=== PATIENT | female | born 1995 | race Caucasian/White ===

== ENCOUNTER 2019-01-09 14:00 | Emergency (ER) | payer MEDICAID ==
[~2019-01-09] VITALS: Ht 160 cm; Wt 66.7 kg
[~2019-01-09 14:00] MED LIST: PRENAT PO
[2019-01-09 14:15] VITALS: BP 116/69; PULSE 79; RESP 18; Ht 160 cm; Wt 66.7 kg
[2019-01-09] MEDS ORDERED: ACET-141 PO (17:11)
--- NOTE | 2019-01-09 17:15 | ERD ---
ER Documentation Chief Complaint Chief Complaint 6 weeks pre HPI 23-year-old female currently 6 weeks presents for headache x1 day. She states that she has 7 out of 10 headache that is noted on the left side of her head. She denies any pain radiation. The pain is noted to be a pulsatile sensation. The pain is intermittent. She has not taken any medication because she is concerned that she is . She has had prior similar headaches in the past. She denies any nausea or vomiting. Denies fevers or chills. No other modifying factors noted, no treatment tried at home. ROS All systems reviewed and are negative except as per history of present illness. Medications Home Meds Active Scripts Acetaminophen* (Acetaminophen*) 500 MG Extra Strength Tablet, 500 MG PO Q4H PRN for PAIN AND OR ELEVATED TEMP, #30 TAB Prov:VINICIO HALL DO 01/09/19 Reported Medications Multivit/Min/Fol Ac/Iron/Pren* ( S*) 1 Tab Tab, 1 TAB PO DAILY, TAB 01/30/15 Allergies Allergies: Coded Allergies: No Known Allergies (Verified Allergy, Unknown, 01/09/19) PMhx/Soc Medical and Surgical Hx: pt denies Medical Hx, pt denies Surgical Hx History of Surgery: Yes ( ) Hx Neurological Disorder: No Hx Respiratory Disorders: No Hx Cardiac Disorders: No Hx Miscellaneous Medical Probl: No Hx Alcohol Use: No Hx Substance Use: No Smoking Status: Never smoker FmHx Family History: No coronary disease Physical Exam Vitals Vital Signs Date Temp Pulse Resp B/P (MAP) Pulse Ox O2 O2 Flow FiO2 Time Delivery Rate 01/09/19 98.2 79 18 116/69 98 14:15 (85) Physical Exam Const: No acute distress Head: Atraumatic, no temporal area tenderness to palpation Eyes: Normal Conjunctiva, pupils equal, round, reactive to light bilaterally ENT: Normal External Ears, bilateral tympanic membrane intact without eryt christine or bulging noted, Nose and Mouth examination normal. No tonsillar swelling or exudate noted Neck: Full range of motion. No meningismus, no bruits noted Resp: Clear to auscultation bilaterally Cardio: Regular rate and rhythm, no murmurs, bilateral radial and dorsalis pedis pulses intact Skin: No petechiae or rashes Ext: No cyanosis, or edema, 5 out of 5 muscular bilateral upper and lower extremities Neur: Awake and alert, bilateral upper and lower extremity sensation intact Psych: Normal Mood and Affect Procedures/MDM Medical Decision Making: Differential diagnosis includes but not limited to primary headache, subarachnoid hemorrhage, meningitis, temporal arteritis, glaucoma, hypertension, cerebral ischemia, carotid or vertebral arterial dissection, brain tumor. Patient appeared well on physical examination, nontoxic appearing. No history of fever. There is low suspicion for meningitis. Given no temporal area tenderness to palpation, low suspicion for temporal art eritis. Patient has no vision changes and pupils are reactive bilaterally, low suspicion for glaucoma. There is also no focal neurologic deficits to suggest a brain tumor. Patient has normal sensation and muscle strength, low suspicion for cerebral ischemia. Given headache is similar to prior headaches, patient possibly has a primary headache. Patient given prescription for Tylenol. Patient advised to take as little of the medication as possible given that she is currently . Patient advised to follow up with PCP in 1-2 days. Patient advised to return to ED for new or worsening symptoms. Patient stable on discharge from the ED. Disclaimer: Inadvertent spelling and grammatical errors are likely due to EHR/dictation software use and do not reflect on the overall quality of patient care. Also, please note that the electronic time recorded on this note does not necessarily reflect the actual time of the patient encounter. Departure Diagnosis: Primary Impression: Headache Headache type: unspecified Headache chronicity pattern: unspecified pattern Intractability: not intractable Qualified Codes: R51 - Headache Condition: Fair Patient Instructions: Self-Care for Headaches Referrals: [facility] YOU HAVE RECEIVED A MEDICAL SCREENING EXAM AND THE RESULTS INDICATE THAT YOU DO NOT HAVE A CONDITION THAT REQUIRES URGENT TREATMENT IN THE EMERGENCY DEPARTMENT. FURTHER EVALUATION AND TREATMENT OF YOUR CONDITION CAN WAIT UNTIL YOU ARE SEEN IN YOUR DOCTORS OFFICE WITHIN THE NEXT 1-2 DAYS. IT IS YOUR RESPONSIBILITY TO MAKE AN APPOINTMENT FOR FOLOW-UP CARE. IF YOU HAVE A PRIMARY DOCTOR --you should call your primary doctor and schedule an appointment IF YOU DO NOT HAVE A PRIMARY DOCTOR YOU CAN CALL OUR PHYSICIAN REFERRAL HOTLINE AT IF YOU CAN NOT AFFORD TO SEE A PHYSICIAN YOU CAN CHOSE FROM THE FOLLOWING [facility] [address] [facility] [address] [facility] [address] [facility] [address] [facility]. [facility] [address] [facility]. [facility]. [address] Additional Instructions: Llame al doctor MAANA y amberly fallon NIKO PARA DENTRO DE 1-2 GÓMEZ.Dgale a la secretaria que nosotros le instruimos hacer esta niko.Avise o llame si calderon condicin se empeora antes de la niko. Regresa aqui si peor o no mejor. VINICIO HALL DO January 09, 2019 17:15
== END 2019-01-09 17:30 | disposition home or self-care (01) ==
LOC: FTE 14:00
DX: O99.89 Other specified diseases and conditions complicating pregnancy, childbirth and the puerperium (principal); R51 Headache; Z3A.01 Less than 8 weeks gestation of pregnancy
CPT/HCPCS: 99282

== ENCOUNTER 2019-01-19 17:55 | Emergency (ER) | payer MEDICAID ==
[~2019-01-19] VITALS: Wt 75.0 kg
[~2019-01-19 17:55] MED LIST changes: +ACET-141 PO
--- NOTE | 2019-01-19 18:25 | EN ---
Date/Time of Note Date/Time of Note DATE: 01/19/19 TIME: 18:22 ER Progress Note Rapid medical evaluation was started on this patient. Patient is a 23-year-old female G2, P1, LMP of 12/25/2018,presenting to the emergency department with complaints of diffuse abdominal pain and pelvic pain which began today. She also reports right upper quadrant pain. She denies any vaginal bleeding at this time. On examination, the patient did have some tenderness to palpation of the right upper quadrant in the pelvic region bilaterally. She will be sent back for further work-up. ARELI TILLEY PA-C January 19, 2019 18:25
[2019-01-19] MEDS ORDERED: ERYT1OIN6 BOTH EYES (19:16)
[2019-01-19] MEDS ORDERED: HYDR-4011 PO (19:16)
[2019-01-19] MEDS ORDERED: IBUP-1542 PO (19:19)
[2019-01-19] MEDS ORDERED: ERYTHROMYCIN 1 GM OPH OINT BOTH EYES ONE (19:30)
--- NOTE | 2019-01-19 20:36 | ERD ---
ER Documentation Chief Complaint Chief Complaint 6 WEEKS WITH EPIGASTRIC PAIN HPI Patient is a 23-year-old female G2, P1, LMP of 12/25/2018,presenting to the emergency department with complaints of epigastric pain which began today. Not taking any treatments. She denies any vaginal bleeding at this time. Denies any dysuria, hematuria, fever, chills, vomiting. She has an OB. ROS All systems reviewed and are negative except as per history of present illness. Medications Home Meds Active Scripts Cephalexin* (Keflex*) 500 Mg Capsule, 500 MG PO BID for 14 Days, CAP Prov:ARELI BERMUDEZ 01/19/19 Acetaminophen* (Acetaminophen*) 500 MG Extra Strength Tablet, 500 MG PO Q4H PRN for PAIN AND OR ELEVATED TEMP, #30 TAB Prov:VINICIO HALL DO 01/09/19 Reported Medications Multivit/Min/Fol Ac/Iron/Pren* ( S*) 1 Tab Tab, 1 TAB PO DAILY, TAB 01/30/15 Allergies Allergies: Coded Allergies: No Known Allergies (Verified Allergy, Unknown, 01/09/19) PMhx/Soc History of Surgery: Yes ( ) Hx Neurological Disorder: No Hx Respiratory Disorders: No Hx Cardiac Disorders: No Hx Psychiatric Problems: No Hx Miscellaneous Medical Probl: No Hx Alcohol Use: No Hx Substance Use: No Hx Tobacco Use: No Smoking Status: Never smoker FmHx Family History: No diabetes, No coronary disease, No other Physical Exam Vitals Vital Signs Date Temp Pulse Resp B/P (MAP) Pulse Ox O2 O2 Flow FiO2 Time Delivery Rate 01/19/19 99.0 80 18 119/76 100 Room Air 22:16 (90) 01/19/19 98.1 75 18 133/61 99 17:57 (85) Physical Exam Const: No acute distress Head: Atraumatic Eyes: Normal Conjunctiva ENT: Normal External Ears, Nose and Mouth. Neck: Full range of motion. No meningismus. Resp: Clear to auscultation bilaterally Cardio: Regular rate and rhythm, no murmurs Abd: Tender to palpation epigastric area. Negative McBurney's. Negative Boucher's. Skin: No petechiae or rashes Back: Left sided flank tenderness. Ext: No cyanosis, or edema Neur: Awake and alert Psych: Normal Mood and Affect Result Diagram: 01/19/191913 Results 24 hrs Laboratory Tests Test 01/19/19 19:11 01/19/19 19:14 01/19/19 19:15 Lipase 57 U/L White Blood Count 18.6 10^3/ul Red Blood Count 4.07 10^6/ul Hemoglobin 12.5 g/dl Hematocrit 37.3 % Mean Corpuscular Volume 91.6 fl Mean Corpuscular Hemoglobin 30.7 pg Mean Corpuscular 33.5 g/dl Hemoglobin Concent Red Cell Distribution Width 12.6 % Platelet Count 265 10^3/UL Mean Platelet Volume 10.6 fl Immature Granulocytes % 0.300 % Neutrophils % 83.5 % Lymphocytes % 11.1 % Monocytes % 4.3 % Eosinophils % 0.5 % Basophils % 0.3 % Nucleated Red Blood Cells % 0.0 /100WBC Immature Granulocytes # 0.050 10^3/ul Neutrophils # 15.5 10^3/ul Lymphocytes # 2.1 10^3/ul Monocytes # 0.8 10^3/ul Eosinophils # 0.1 10^3/ul Basophils # 0.1 10^3/ul Nucleated Red Blood Cells # 0.0 10^3/ul Beta HCG, Quantitative 315247.0 mIU/ml Urine Color YELLOW Urine Clarity SLIGHTLY CLOUDY Urine pH 6.0 Urine Specific Deane 1.013 Urine Ketones NEGATIVE mg/dL Urine Nitrite NEGATIVE mg/dL Urine Bilirubin NEGATIVE mg/dL Urine Urobilinogen NEGATIVE mg/dL Urine Leukocyte Esterase NEGATIVE Ramon/ul Urine Microscopic RBC 1 /HPF Urine Microscopic WBC 1 /HPF Urine Squamous Epithelial Cells MODERATE /HPF Urine Bacteria FEW /HPF Urine Mucus FEW /HPF Urine Yeast (Budding) FEW /HPF Urine Hemoglobin NEGATIVE mg/dL Urine Glucose NEGATIVE mg/dL Urine Total Protein NEGATIVE mg/dl Current Medications Medications Dose Sig/Yoselin Start Time Status Last (Trade) Ordered Route PRN Stop Time Admin Dose Reason Admin 1 applic ONCE ONCE 01/19/19 DC Erythromycin BOTH EYES 19:30 01/19/19 20:17 (Erythromycin Oph Oint) Ceftriaxone 1 gm ONCE ONCE 01/19/19 DC 01/19/19 Sodium IM 22:00 21:54 (Rocephin) 01/19/19 22:01 Lidocaine 5 ml ONCE ONCE 01/19/19 DC 01/19/19 (Xylocaine INJ 22:00 21:54 1% (Mpf)) 01/19/19 22:01 Procedures/MDM Pyelonephritis, DIAGNOSTIC IMAGING REPORT Patient: ADONAY PAIZ : 1995 Age: 23 Sex: F MR #: [id number] DOS: 01/19/19 1825 Ordering MD: ARELI TILLEY PA-C Location: [facility] Room/Bed: PROCEDURE: US OB. CLINICAL INDICATION: First trimester pain TECHNIQUE: Multiple sonographic images of the pelvis and gravid uterus were obtained using transabdominal technique. The images were reviewed on a PACS workstation. COMPARISON: No prior studies are available for comparison. FINDINGS: Uterus is retroverted. It measures 9.4 x 5.5 x 6.2 cm. Uterus of normal contour and echogenicity. Noted is a single intrauterine gestation sac with pole with positive heart beat measuring 157 beats per minute. Falman-rump length measures 9.4 mm corresponding to a gestational age 7 weeks 0 days. There is a thick regular decidual reaction. No subchorionic hemorrhage is visualized. Right ovary measures 3.9 x 3.5 x 3.7 cm. Left ovary measures 3.4 by 2.6 x 3.0 cm. No adnexal mass is present. There is normal arterial flow to both ovaries on color-flow Doppler imaging. There is no free fluid in the pelvis. No solid pelvic masses present. IMPRESSION: Single intrauterine gestation with positive heart beat of approximate gestational age 7 weeks 0 days. No subchorionic hemorrhage. Normal ovaries. RPTAT: PP .Cristino Correa MD, MD Date Time Electronically viewed and signed by .Cristino Correa MD, MD on 01/19/2019 19:02 .A/ CC: ARELI TILLEY PA-C [id number] DIAGNOSTIC IMAGING REPORT Patient: ADONAY PAIZ : 1995 Age: 23 Sex: F MR #: [id number] DOS: 01/19/192017 Ordering MD: ARELI BERMUDEZ Location: [facility] Room/Bed: PROCEDURE: US Abdomen. CLINICAL INDICATION: Pain TECHNIQUE: Multiple real-time images were acquired of the patient's abdomen and retroperitoneum utilizing a high resolution transducer. COMPARISON: None FINDINGS: The liver is of normal size, contour and echogenicity with no mass or intrahepatic ductal dilatation. Portal and hepatic vein are patent on color flow Doppler imaging. The common bile duct measures 2.7 millimeter in transverse diameter.No gallstones are identified. Gallbladder wall is not thickened and no abnormal pericholecystic fluid collection is seen. No sonographic Boucher's sign was elicited during this exam. There is no ascites. The pancreas is normal with no mass or ductal dilatation. The right kidney measures 11 cm in length. No hydronephrosis, calculus or masses seen. IMPRESSION: No evidence of cholelithiasis, cholecystitis or biliary obstruction. .Cristino Correa MD, MD Date Time Electronically viewed and signed by .Cristino Correa MD, on 01/19/2019 21:20 .A/ CC: ARELI BERMUDZE [id number] MDM: Upon presentation there was concern for possible gallbladder pathology given patient's complaint of epigastric pain in addition to elevated white count, therefore gallbladder ultrasound was ordered. Results are within normal limits. Pelvic ultrasound was also ordered given patient's status and results were within normal limits. UA showed some bacteria so given patient's status and abdominal pain, pt treated for possible complicated UTI with ceftriaxone as well as 14-day course of Keflex. At this point I have low suspicion for acute appendicitis, cholecystitis, AAA, uterine rupture, placenta accreta, pyelonephritis or any other emergent condition. Given patient's com plaint of abdominal pain with unclear etiology as well as elevated white count patient was advised to return in 8 hours for follow-up exam. atient discharged with strict ER precautions. Patient advised to follow up with PMD. All questions answered at discharge.. Departure Diagnosis: Primary Impression: Abdominal pain Abdominal location: epigastric Qualified Codes: R10.13 - Epigastric pain Additional Impression: UTI (urinary tract infection) Urinary tract infection type: site unspecified Hematuria presence: without hematuria Qualified Codes: N39.0 - Urinary tract infection, site not specified Condition: Stable Referrals: [facility] Hours: Wed - Wed 9:00 AM - 5:00 PM ARELI BERMUDEZ January 19, 2019 20:36
[2019-01-19] MEDS ORDERED: CEPH-443 PO (21:59)
[2019-01-19] MEDS ORDERED: CEFTRIAXONE 1 GM INJ IM ONE (22:00)
[2019-01-19] MEDS ORDERED: LIDOCAINE 1% (MPF) 5 ML VIAL INJ ONE (22:00)
[2019-01-19 22:16] VITALS: BP 119/76; PULSE 80; RESP 18
== END 2019-01-19 22:17 | disposition home or self-care (01) ==
LOC: FTE 17:55
DX: O26.891 Other specified pregnancy related conditions, first trimester (principal); R10.13 Epigastric pain; O23.41 Unspecified infection of urinary tract in pregnancy, first trimester; Z3A.01 Less than 8 weeks gestation of pregnancy
CPT/HCPCS: 36415; 76705; 76801; 81001; 83690; 84702; 85025; 86900; 86901; 87086; 96372; J0696; Z7502; Z7610; 81003

== ENCOUNTER 2019-01-20 05:57 | Emergency (ER) | payer MEDICAID ==
[~2019-01-20] VITALS: Ht 160 cm; Wt 66.3 kg
[~2019-01-20 05:57] MED LIST changes: +CEPH-443 PO
[2019-01-20 06:04] VITALS: BP 106/61; PULSE 98; RESP 17; Ht 160 cm; Wt 66.3 kg
--- NOTE | 2019-01-20 06:44 | ERD ---
ER Documentation Chief Complaint Chief Complaint WAS HERE 8HRS AGO, WAS ASKED TO RETURN FOR RECHECK, DX W/ UTI, 7 WEEKS PREG HPI 23-year-old female returns to the emergency department for abdominal pain recheck. Patient was evaluated last night with nonspecific epigastric abdominal pain in the setting of an early . She was treated presumptively for urinary tract infection and asked to return to rule out appendicitis. Currently, patient describes epigastric abdominal pain, but no right lower quadrant abdominal pain. She reports no fevers or vomiting or anorexia. She states that overall her pain is improving. ROS All systems reviewed and are negative except as per history of present illness. Medications Home Meds Active Scripts Cephalexin* (Keflex*) 500 Mg Capsule, 500 MG PO BID for 14 Days, CAP Prov:ARELI BERMUDEZ 01/19/19 Acetaminophen* (Acetaminophen*) 500 MG Extra Strength Tablet, 500 MG PO Q4H PRN for PAIN AND OR ELEVATED TEMP, #30 TAB Prov:ISABELVINICIO 01/09/19 Reported Medications Multivit/Min/Fol Ac/Iron/Pren* ( S*) 1 Tab Tab, 1 TAB PO DAILY, TAB 01/30/15 Allergies Allergies: Coded Allergies: No Known Allergies (Verified Allergy, Unknown, 01/09/19) PMhx/Soc History of Surgery: Yes ( ) Hx Neurological Disorder: No Hx Respiratory Disorders: No Hx Cardiac Disorders: No Hx Psychiatric Problems: No Hx Miscellaneous Medical Probl: No Hx Alcohol Use: No Hx Substance Use: No Hx Tobacco Use: No Physical Exam Vitals Vital Signs Date Temp Pulse Resp B/P (MAP) Pulse Ox O2 O2 Flow FiO2 Time Delivery Rate 01/20/19 97.8 98 17 106/61 99 06:04 (76) Physical Exam General: well developed, well nourished, in no distress. Neuro: Normal speech, gait, balance Abdomen: Soft, nontender nondistended. Specifically, the right lower quadrant is benign with no signs of appendicitis including no rebound or guarding. There is no CVA tenderness. Procedures/MDM Patient was taken to a room, seen and examined Medical decision makin-year-old female returns the emergency department to rule out appendicitis with nonspecific abdominal pain. At this time, she has no clinical evidence of appendicitis. I have reiterated appendicitis precautions with her, but she appears to be clinically well and appropriate for outpatient supportive care. Departure Diagnosis: Primary Impression: Abdominal pain Condition: Stable Patient Instructions: Abdominal Pain Additional Instructions: Return for any increased pain or other concerns ALONZO VALDIVIA January 20, 2019 06:44
== END 2019-01-20 07:26 | disposition left against medical advice (07) ==
LOC: FTE 05:57
DX: O26.891 Other specified pregnancy related conditions, first trimester (principal); R10.13 Epigastric pain; Z3A.01 Less than 8 weeks gestation of pregnancy
CPT/HCPCS: 99282

== ENCOUNTER 2019-05-13 09:38 | Outpatient (CLI) | payer MEDICAID ==
[~2019-05-13] VITALS: Ht 157.5 cm; Wt 69.0 kg
[2019-05-13 10:06] VITALS: BP 98/54; PULSE 77; RESP 18
[2019-05-13 10:07] VITALS: Ht 157.5 cm; Wt 69.0 kg
== END 2019-05-13 12:25 | disposition home or self-care (01) ==
LOC: L-D 09:38 → OBT 09:38
PROVIDERS: ATTEND Obstetrics & Gynecology
DX: O42.912 Preterm premature rupture of membranes, unspecified as to length of time between rupture and onset of labor, second trimester (principal); Z3A.24 24 weeks gestation of pregnancy
CPT/HCPCS: 80307; 81003; 84112; Z7500; G0463